=== PATIENT | female | born 1995 | race Asian ===

== ENCOUNTER 2016-11-14 04:10 | Inpatient (IN) | payer MEDICAID ==
[~2016-11-14] VITALS: Ht 167.6 cm; Wt 69.8 kg
[2016-11-14 04:32] VITALS: BP 126/59; PULSE 93; RESP 18; Ht 167.6 cm; Wt 69.8 kg
[2016-11-14] MEDS ORDERED: PRENAT PO (04:51)
[2016-11-14] MEDS ORDERED: LACTATED RINGER'S 1,000 ML IV SCH (04:54)
[2016-11-14] MEDS ORDERED: LACTATED RINGER'S 1,000 ML IV PRN (04:57)
[2016-11-14] MEDS ORDERED: OXYTOCIN 30 UNITS/LR 500 ML IV SCH ×2 (05:00)
[2016-11-14] MEDS ORDERED: OXYTOCIN 30 UNITS/LR 500 ML IV PRN (05:00)
[2016-11-14] MEDS ORDERED: METHYLERGONOVINE 0.2 MG INJ IM PRN ×2 (05:00→13:30)
[2016-11-14] MEDS ORDERED: BUTORPHANOL 2 MG INJ IV PRN ×2 (05:00)
[2016-11-14] MEDS ORDERED: LIDOCAINE 1% (MPF) 30 ML INJ INJ PRN (05:00)
[2016-11-14] MEDS ORDERED: MISOPROSTOL 200 MCG TAB PR PRN ×2 (05:00→13:30)
[2016-11-14] MEDS ORDERED: CARBOPROST 250 MCG INJ IM PRN ×2 (05:00→13:30)
--- NOTE | 2016-11-14 05:00 | TRIAGE ---
OB Triage Datetime Report Generated by CPN: 11/14/2016 04:59 Datetime: 11/14/2016 04:49 Assessment Type: Triage Maternal Assessment Level of Consciousness: Fully Conscious DTR's/Clonus: DTRs 2+; No Clonus Headache: Denies Blurred Vision: No Respiratory Effort: Unlabored Nausea/Vomiting: Denies RUQ Epigastric Pain: Denies Lower Extremities Edema: None Degree: None Upper Extremities Edema: None Degree: None Facial Edema: None Fall Risk Assessment History of Falling: (0) No Secondary Diagnosis: (0) No Ambulatory Aid: (0) Bedrest/Nurse Assist IV Therapy: (0) No Gait: (0) Normal/Bedrest/Immobile Mental Status: (0) Oriented to Own Ability Fall Score: 0 Fall Risk Score Definition: No Risk: No action required Datetime: 11/14/2016 04:44 Vaginal Exam Dilatation (cms): 3.0 Effacement (%): 70 Station: -1 Vaginal Bleeding: Normal Show Datetime: 11/14/2016 04:29 Time of Arrival: 11/14/2016 04:10 EGA: 37.4 Arrived By: Wheelchair Arrived From: Home Chief Complaint: R/O srom, UC's Movement: Present Contractions: Irregular Rupture of Membranes: Unsure Vaginal Bleeding: Small Vaginal Discharge: Denies Recent Sexual Intercouse: Denies Abdominal Trauma: Not Applicable Patient Complaints: Other Time Provider Notified: 11/14/2016 04:47 Provider Notified: Sonam Initial Plan: MARY HILL
[2016-11-14 05:57] LABS: ADD SCAN DIFF NO
[2016-11-14 06:05] LABS: BASOPHILS % 0.3 % (0.0-2.0); EOSINOPHILS # 0.1 10^3/ul (0.0-0.5); EOSINOPHILS % 0.9 % (0.0-7.0); HEMATOCRIT 39.9 % (37.0-47.0); HEMOGLOBIN 13.4 g/dl (12.0-16.0); LYMPHOCYTES # 1.8 10^3/ul (0.8-2.9); LYMPHOCYTES % 18.2 % (15.0-51.0); MEAN CORPUSCULAR HGB CONC 33.6 g/dl (32.0-37.0); MEAN CORPUSCULAR VOLUME 92.4 fl (82.0-101.0); MEAN PLATELET VOLUME 10.4 fl (7.4-10.4); MONOCYTE # 0.6 10^3/ul (0.3-0.9); MONOCYTES % 5.6 % (0.0-11.0); NEUTROPHIL # 7.4 10^3/ul (1.6-7.5); NEUTROPHILS % 74.5 % (39.0-77.0); PLATELET COUNT 214 10^3/UL (140-415); RED BLOOD COUNT 4.32 10^6/ul (4.20-5.40); RED CELL DISTRIBUTION WIDTH 13.1 % (11.5-14.5); WHITE BLOOD COUNT 9.9 10^3/ul (4.8-10.8)
[2016-11-14 06:31] LABS: INR 0.88; PROTIME 11.9 Sec (12.2-14.2); PT RATIO 0.9
[2016-11-14 06:32] LABS: PARTIAL THROMBOPLASTIN TIME 26.1 Sec (25.0-35.0)
[2016-11-14] MEDS ORDERED: FENTAnyl 2MCG/ML-ROPIV 0.2% 100 ML ONE (09:36)
[2016-11-14] MEDS ORDERED: FENTAnyl 50 MCG/ML VIAL ONE (09:58)
[2016-11-14] MEDS ORDERED: DIPHENHYDRAMINE 50 MG INJ IV PRN (10:00)
[2016-11-14] MEDS ORDERED: ONDANSETRON 4 MG INJ IV PRN (10:00)
[2016-11-14] MEDS ORDERED: FENTAnyl 2MCG/ML-ROPIV 0.2% 100 ML BAG EPI SCH (10:00)
[2016-11-14] MEDS ORDERED: NALOXONE (0.4 MG/ML) INJ IV PRN (10:00)
--- NOTE | 2016-11-14 11:06 | HP ---
Date/Time of Note Date/Time of Note DATE: 11/14/16 TIME: 11:02 OB - History Hx of Present Free Text/Dictation 21 y.o at 37w4d came in with vaginal spotting and u.c [id number]% -1 intact membrane admitted for expectant management Past Family/Social History * Past Medical, Surgical, Family and Obstetric Histories reviewed from chart. OB Admission Exam Vital Signs Vital Signs Vital Signs Date Time Temp Pulse Resp B/P Pulse Ox O2 Delivery O2 Flow Rate FiO2 11/14/16 04:32 98.9 93 18 126/59 Room Air Physical Exam HEENT: WNL Heart: Rhythm Normal Lungs: Clear, Equal Abdomen: WNL Extremities: Normal Reflexes: Normal Cervical Dilatation: 3cm Effacement: 75% Station: -1 Membranes: Intact Amniotic Fluid: Unevaluable Heart Rate: 140's Accelerations: Accelerations Present Decelerations: No Decelerations Varibility: Moderate Contractions on Admission: < 5 Minutes Apart Intensity: Mild Last 72 hours Lab Results CBC & BMP 11/14/16 05:40 OB Assessment/Plan Other Assessment: IUP 37w4d in labor Plan: Expectant Management YAJAIRA BERNSTEIN MD November 14, 2016 11:06
--- NOTE | 2016-11-14 11:08 | LDN ---
Date/Time of Note Date/Time of Note DATE: 11/14/16 TIME: 11:06 Delivery Summary Weeks of Gestation 37w4d Placenta Delivered: Spontaneously Meconium: none Perineal laceration: 2 Laceration repair: 00ch gut Anesthesia type: Epidural Estimated blood loss: 200 Sponge & Needle done & correct: Yes All needle counts correct: Yes Any foreign bodies felt in the: No Problems: Infant Delivery Information Sex Sex: female Apgars 1 Minute: 9 5 Minute: 9 Suctioning Nose & mouth suctioned at elayne: Yes Delee suction performed: No Umbilical Cord Umbilical cord with: 3 Vessels Cord presentations: no nuchal cord Cord Blood was obtained: Yes Mother & Baby Disposition Disposition Mom & Baby to Maternity; Good: Yes Mom transferred to: Other () Baby to NICU: No YAJAIRA BERNSTEIN MD November 14, 2016 11:08
[2016-11-14 13:00] VITALS: BP 101/59; PULSE 68; RESP 19
[2016-11-14] MEDS ORDERED: BENZOCAINE 20% 56 ML SPRAY TOP PRN (13:30)
[2016-11-14] MEDS ORDERED: ZOLPIDEM 5 MG TAB PO PRN (13:30)
[2016-11-14] MEDS ORDERED: OXYCODONE/ASPIRIN (4.88/325) TAB PO PRN ×2 (13:30)
[2016-11-14] MEDS ORDERED: LANOLIN 7 GM TUBE TOP PRN (13:30)
[2016-11-14] MEDS: WITCH HAZEL/GLYCERIN PAD PR PRN (15:01)
[2016-11-14] MEDS: OXYTOCIN 30 UNITS/LR 500 ML IV PRN ×2 (15:03→19:02)
[2016-11-14 16:15] VITALS: BP 104/57; PULSE 81; RESP 18
[2016-11-14] MEDS: IBUPROFEN 600 MG TAB PO SCH ×2 (17:47→23:22)
[2016-11-14 20:00] VITALS: BP 115/63; PULSE 67; RESP 18
[2016-11-14] MEDS: SENNA/DOCUSATE NA (8.6MG/50MG) TAB PO SCH (21:20)
[2016-11-15] VITALS: BP 112/53; PULSE 70; RESP 18
[2016-11-15 04:00] VITALS: BP 100/54; PULSE 80; RESP 18
[2016-11-15] MEDS: IBUPROFEN 600 MG TAB PO SCH ×4 (06:31→23:36)
[2016-11-15 08:00] VITALS: BP 105/62; PULSE 100; RESP 17
[2016-11-15 08:39] LABS: ADD SCAN DIFF NO
[2016-11-15 09:04] LABS: BASOPHILS % 0.2 % (0.0-2.0); EOSINOPHILS # 0.1 10^3/ul (0.0-0.5); EOSINOPHILS % 0.9 % (0.0-7.0); HEMATOCRIT 39.8 % (37.0-47.0); HEMOGLOBIN 13.5 g/dl (12.0-16.0); LYMPHOCYTES # 1.8 10^3/ul (0.8-2.9); MEAN CORPUSCULAR HGB CONC 33.9 g/dl (32.0-37.0); MEAN CORPUSCULAR VOLUME 91.5 fl (82.0-101.0); MEAN PLATELET VOLUME 10.5 fl (7.4-10.4); MONOCYTE # 0.5 10^3/ul (0.3-0.9); MONOCYTES % 4.4 % (0.0-11.0); NEUTROPHILS % 77.7 % (39.0-77.0); PLATELET COUNT 201 10^3/UL (140-415); RED BLOOD COUNT 4.35 10^6/ul (4.20-5.40); RED CELL DISTRIBUTION WIDTH 13.2 % (11.5-14.5); WHITE BLOOD COUNT 11.5 10^3/ul (4.8-10.8)
[2016-11-15] MEDS: SENNA/DOCUSATE NA (8.6MG/50MG) TAB PO SCH ×2 (09:25→20:54)
--- NOTE | 2016-11-15 13:32 | PN ---
Date/Time of Note Date/Time of Note DATE: 11/15/16 TIME: 13:30 OB Subjective Subjective Subjective November 15, 2016 day hospital visit Laboratory Tests Test 11/15/16 08:35 White Blood Count 11.510^3/ul Red Blood Count 4.3510^6/ul Hemoglobin 13.5g/dl Hematocrit 39.8% Mean Corpuscular Volume 91.5fl Mean Corpuscular Hemoglobin 31.0pg Mean Corpuscular Hemoglobin Concent 33.9g/dl Red Cell Distribution Width 13.2% Platelet Count 66846^3/UL Mean Platelet Volume 10.5fl Neutrophils % 77.7% Lymphocytes % 16.0% Monocytes % 4.4% Eosinophils % 0.9% Basophils % 0.2% Nucleated Red Blood Cells % 0.0/100WBC Neutrophils # 9.010^3/ul Lymphocytes # 1.810^3/ul Monocytes # 0.510^3/ul Eosinophils # 0.110^3/ul Basophils # 0.010^3/ul Nucleated Red Blood Cells # 0.010^3/ul Current Medications Medications (Trade) Dose Ordered Sig/Darling Route PRN Reason Start Time Stop Time Status Last Admin Dose Admin Lactated Ringer's (Lr) 1,000 ml @ 125 mls/hr Q8H IV 11/14/16 04:54 11/14/16 13:27 DC 11/14/16 06:03 Butorphanol Tartrate (Stadol) 1 mg Q2H PRN IV PAIN 11/14/16 05:00 11/14/16 13:27 DC Butorphanol Tartrate (Stadol) 2 mg Q2H PRN IV PAIN 11/14/16 05:00 11/14/16 13:27 DC Lidocaine 30 ml 30 ml ONCE PRN INJ EPISIOTOMY/TEARING 11/14/16 05:00 11/14/16 13:27 DC Oxytocin/Lactated Ringer's 500 ml @ 125 mls/hr ONCE -MAY REPEAT X1 IV 11/14/16 05:00 11/14/16 13:27 DC 11/14/16 11:10 Oxytocin/Lactated Ringer's 500 ml @ 125 mls/hr ONCE IV 11/14/16 05:00 11/14/16 13:27 DC 11/14/16 11:06 Lactated Ringer's 1,000 ml @ 2,000 mls/hr Q30M PRN IV PRE-EPIDURAL BOLUS 11/14/16 04:57 11/14/16 13:27 DC 11/14/16 09:28 Oxytocin/Lactated Ringer's 500 ml @ 0 mls/hr ONCE PRN IV For Hemorrhage Management 11/14/16 05:00 11/14/16 13:27 DC Methylergonovine Maleate (Methergine) 0.2 mg ONCE PRN IM VAGINAL BLEEDING 11/14/16 05:00 11/14/16 13:27 DC Carboprost Tromethamine (Hemabate) 250 mcg ONCE PRN IM VAGINAL BLEEDING 11/14/16 05:00 11/14/16 13:27 DC Misoprostol (Cytotec) 1,000 mcg ONCE PRN NE VAGINAL BLEEDING 11/14/16 05:00 11/14/16 13:27 DC Naloxone HCl (Narcan) 0.1 mg Q2M PRN IV FOR RESP RATE 8 OR LESS 11/14/16 10:00 11/14/16 13:27 DC Diphenhydramine HCl (Benadryl) 25 mg Q6H PRN IV ITCHING 11/14/16 10:00 11/14/16 13:27 DC Ondansetron HCl (Zofran Inj) 4 mg Q6H PRN IV NAUSEA AND/OR VOMITING 11/14/16 10:00 11/14/16 13:27 DC Fentanyl/ Ropivacaine 100 ml 100 ml EPIDURAL INFUSION EPI 11/14/16 10:00 11/14/16 13:27 DC Fentanyl/ Ropivacaine 100 ml @ ud STK-MED ONCE .ROUTE 11/14/16 09:36 11/14/16 09:37 DC Fentanyl (Sublimaze) 100 mcg STK-MED ONCE .ROUTE 11/14/16 09:58 11/14/16 09:59 DC Ibuprofen (Motrin) 600 mg Q6 PO 11/14/16 18:00 11/15/16 12:05 Oxycodone/Aspirin (Percodan) 1 tab Q3H PRN PO PAIN LEVEL 1-5 11/14/16 13:30 11/14/16 21:19 Oxycodone/Aspirin (Percodan) 2 tab Q3H PRN PO PAIN LEVEL 6-10 11/14/16 13:30 Zolpidem Tartrate (Ambien) 5 mg QHS PRN PO INSOMNIA 11/14/16 13:30 Senna/Docusate Sodium (Senokot-S) 1 tab BID PO 11/14/16 21:00 11/15/16 09:25 Witch Hanna/ Glycerin (Tucks Pads) 1 pad BEDSIDE MEDICATION PRN NE HEMORRHOID/EPISIOTMY PAIN 11/14/16 13:30 11/14/16 15:01 Benzocaine (Dermoplast [place]) 1 spray BEDSIDE MEDICATION PRN TOP HEMORRHOID/EPISIOTMY PAIN 11/14/16 13:30 11/14/16 15:01 Lanolin (Pjn-E-Dxottq) 1 applic BEDSIDE MEDICATION PRN TOP BEDSIDE FOR J CARLOS TO NIPPLES 11/14/16 13:30 11/14/16 15:01 Diphtheria/ Tetanus/Acell Pertussis 0.5 ml 0.5 ml ONCE ONCE IM* 11/16/16 09:00 11/16/16 09:01 Oxytocin/Lactated Ringer's 500 ml @ 0 mls/hr ONCE PRN IV For Hemorrhage Management 11/14/16 13:30 11/14/16 19:02 Methylergonovine Maleate (Methergine) 0.2 mg ONCE PRN IM VAGINAL BLEEDING 11/14/16 13:30 Carboprost Tromethamine (Hemabate) 250 mcg ONCE PRN IM VAGINAL BLEEDING 11/14/16 13:30 Misoprostol (Cytotec) 1,000 mcg ONCE PRN NE VAGINAL BLEEDING 11/14/16 13:30 Patient is doing well, Ambulatory She is afebrile Abdomen is soft , Fundus is firm Moderate amount of lochia Breasts are soft, Nipples are intact No calf tenderness.. Breast feeding the new born. Her blood pressure is now stable around 125/75 a max sulfate will stop VICKIE KWONG MD November 15, 2016 13:32
[2016-11-15 16:00] VITALS: BP 110/58; PULSE 85; RESP 16
--- NOTE | 2016-11-15 16:05 | PN ---
Date/Time of Note Date/Time of Note DATE: 11/15/16 TIME: 16:03 OB Subjective Subjective Subjective had b.m urination ok OB Objective Objective Objective vss afebrile fundus firm lochia min calf neg OB Assessment/Plan Other Assessment: stable Other plan: d/s home in am YAJAIRA BERNSTEIN MD November 15, 2016 16:05
--- NOTE | 2016-11-15 18:02 | PN ---
Date/Time of Note Date/Time of Note DATE: 11/15/16 TIME: 18:00 OB Subjective Subjective Subjective November 15, 2069 Hospital visit Post day 2 Patient is doing well, Ambulatory She is afebrile Abdomen is soft , Fundus is firm Moderate amount of lochia Breasts are soft, Nipples are intact No calf tenderness. Breast feeding the new born. Incision is clean Laboratory Tests Test 11/15/16 08:35 White Blood Count 11.510^3/ul Red Blood Count 4.3510^6/ul Hemoglobin 13.5g/dl Hematocrit 39.8% Mean Corpuscular Volume 91.5fl Mean Corpuscular Hemoglobin 31.0pg Mean Corpuscular Hemoglobin Concent 33.9g/dl Red Cell Distribution Width 13.2% Platelet Count 61751^3/UL Mean Platelet Volume 10.5fl Neutrophils % 77.7% Lymphocytes % 16.0% Monocytes % 4.4% Eosinophils % 0.9% Basophils % 0.2% Nucleated Red Blood Cells % 0.0/100WBC Neutrophils # 9.010^3/ul Lymphocytes # 1.810^3/ul Monocytes # 0.510^3/ul Eosinophils # 0.110^3/ul Basophils # 0.010^3/ul Nucleated Red Blood Cells # 0.010^3/ul Current Medications Medications (Trade) Dose Ordered Sig/Darling Route PRN Reason Start Time Stop Time Status Last Admin Dose Admin Lactated Ringer's (Lr) 1,000 ml @ 125 mls/hr Q8H IV 11/14/16 04:54 11/14/16 13:27 DC 11/14/16 06:03 Butorphanol Tartrate (Stadol) 1 mg Q2H PRN IV PAIN 11/14/16 05:00 11/14/16 13:27 DC Butorphanol Tartrate (Stadol) 2 mg Q2H PRN IV PAIN 11/14/16 05:00 11/14/16 13:27 DC Lidocaine 30 ml 30 ml ONCE PRN INJ EPISIOTOMY/TEARING 11/14/16 05:00 11/14/16 13:27 DC Oxytocin/Lactated Ringer's 500 ml @ 125 mls/hr ONCE -MAY REPEAT X1 IV 11/14/16 05:00 11/14/16 13:27 DC 11/14/16 11:10 Oxytocin/Lactated Ringer's 500 ml @ 125 mls/hr ONCE IV 11/14/16 05:00 11/14/16 13:27 DC 11/14/16 11:06 Lactated Ringer's 1,000 ml @ 2,000 mls/hr Q30M PRN IV PRE-EPIDURAL BOLUS 11/14/16 04:57 11/14/16 13:27 DC 11/14/16 09:28 Oxytocin/Lactated Ringer's 500 ml @ 0 mls/hr ONCE PRN IV For Hemorrhage Management 11/14/16 05:00 11/14/16 13:27 DC Methylergonovine Maleate (Methergine) 0.2 mg ONCE PRN IM VAGINAL BLEEDING 11/14/16 05:00 11/14/16 13:27 DC Carboprost Tromethamine (Hemabate) 250 mcg ONCE PRN IM VAGINAL BLEEDING 11/14/16 05:00 11/14/16 13:27 DC Misoprostol (Cytotec) 1,000 mcg ONCE PRN MD VAGINAL BLEEDING 11/14/16 05:00 11/14/16 13:27 DC Naloxone HCl (Narcan) 0.1 mg Q2M PRN IV FOR RESP RATE 8 OR LESS 11/14/16 10:00 11/14/16 13:27 DC Diphenhydramine HCl (Benadryl) 25 mg Q6H PRN IV ITCHING 11/14/16 10:00 11/14/16 13:27 DC Ondansetron HCl (Zofran Inj) 4 mg Q6H PRN IV NAUSEA AND/OR VOMITING 11/14/16 10:00 11/14/16 13:27 DC Fentanyl/ Ropivacaine 100 ml 100 ml EPIDURAL INFUSION EPI 11/14/16 10:00 11/14/16 13:27 DC Fentanyl/ Ropivacaine 100 ml @ ud STK-MED ONCE .ROUTE 11/14/16 09:36 11/14/16 09:37 DC Fentanyl (Sublimaze) 100 mcg STK-MED ONCE .ROUTE 11/14/16 09:58 11/14/16 09:59 DC Ibuprofen (Motrin) 600 mg Q6 PO 11/14/16 18:00 11/15/16 12:05 Oxycodone/Aspirin (Percodan) 1 tab Q3H PRN PO PAIN LEVEL 1-5 11/14/16 13:30 11/14/16 21:19 Oxycodone/Aspirin (Percodan) 2 tab Q3H PRN PO PAIN LEVEL 6-10 11/14/16 13:30 Zolpidem Tartrate (Ambien) 5 mg QHS PRN PO INSOMNIA 11/14/16 13:30 Senna/Docusate Sodium (Senokot-S) 1 tab BID PO 11/14/16 21:00 11/15/16 09:25 Witch Hanna/ Glycerin (Tucks Pads) 1 pad BEDSIDE MEDICATION PRN MD HEMORRHOID/EPISIOTMY PAIN 11/14/16 13:30 11/14/16 15:01 Benzocaine (Dermoplast [place]) 1 spray BEDSIDE MEDICATION PRN TOP HEMORRHOID/EPISIOTMY PAIN 11/14/16 13:30 11/14/16 15:01 Lanolin (Arl-P-Wzptmj) 1 applic BEDSIDE MEDICATION PRN TOP BEDSIDE FOR J CARLOS TO NIPPLES 11/14/16 13:30 11/14/16 15:01 Diphtheria/ Tetanus/Acell Pertussis 0.5 ml 0.5 ml ONCE ONCE IM* 11/16/16 09:00 11/16/16 09:01 Oxytocin/Lactated Ringer's 500 ml @ 0 mls/hr ONCE PRN IV For Hemorrhage Management 11/14/16 13:30 11/14/16 19:02 Methylergonovine Maleate (Methergine) 0.2 mg ONCE PRN IM VAGINAL BLEEDING 11/14/16 13:30 Carboprost Tromethamine (Hemabate) 250 mcg ONCE PRN IM VAGINAL BLEEDING 11/14/16 13:30 Misoprostol (Cytotec) 1,000 mcg ONCE PRN MD VAGINAL BLEEDING 11/14/16 13:30 Diphtheria/ Tetanus/Acell Pertussis (Adacel) 0.5 ml ONCE ONCE IM* 11/16/16 09:00 11/16/16 09:00 DC We will discharge her in a.m. if afebrile VICKIE KWONG MD November 15, 2016 18:02
[2016-11-15 20:30] VITALS: BP 116/58; PULSE 100; RESP 18
[2016-11-16] MEDS: WITCH HAZEL/GLYCERIN PAD PR PRN (00:52)
[2016-11-16 04:00] VITALS: BP 109/56; PULSE 72; RESP 18
[2016-11-16] MEDS: IBUPROFEN 600 MG TAB PO SCH ×2 (05:41→12:38)
[2016-11-16 08:00] VITALS: BP 107/59; PULSE 62; RESP 18
[2016-11-16] MEDS ORDERED: DIPHTH/TET/ACEL PERTUSS (ADULT) 0.5 ML VIAL IM* ONE ×2 (09:00)
[2016-11-16] MEDS: SENNA/DOCUSATE NA (8.6MG/50MG) TAB PO SCH (09:13)
--- NOTE | 2016-11-16 09:32 | PD.PPDC ---
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
--- NOTE | 2016-11-16 09:34 | DS ---
Date/Time of Note Date/Time of Note DATE: 11/16/16 TIME: 09:33 Obstetrical Discharge Record Final Diagnosis Final Diagnosis: Term delivered Vaginal Delivery Obstetrical Delivery: Spontaneous, Laceration, Repaired Condition on Discharge Physical Assessment Last Vitals: VSS AFEBRILE FUNDUS FIRM LOCHIA MIN CALF NEG Voiding: Yes Bowel Movement: Yes Breast: Soft, non-tender Fundus: Firm Calf Tenderness: No Patient Condition: Stable YAJAIRA BERNSTEIN MD November 16, 2016 09:34
[2016-11-16 16:00] VITALS: BP 113/86; PULSE 103; RESP 18
== END 2016-11-16 18:19 | disposition home or self-care (01) | DRG 775 ==
LOC: OBT 04:10 → L-D 04:10 → OBT 04:47 → PP1 12:47
PROVIDERS: ADMIT Obstetrics & Gynecology; ATTEND Obstetrics & Gynecology
PROC: 10E0XZZ Delivery of Products of Conception, External Approach (ICD-10-PCS; principal; 2016-11-14)
PROC: 0KQM0ZZ Repair Perineum Muscle, Open Approach (ICD-10-PCS; 2016-11-14)
DX: O70.1 Second degree perineal laceration during delivery (principal); Z37.0 Single live birth; Z3A.37 37 weeks gestation of pregnancy
CPT/HCPCS: 62319; 85025; 85610; 85730; 86592; 86900; 86901; 87340; 90715; G0463; J2590; J3010; J7120